=== PATIENT | female | born 1965 | race Caucasian/White ===

== ENCOUNTER 2016-11-26 11:14 | Emergency (ER) | payer MEDICAID ==
[2016-11-26 11:25] VITALS: BP 142/78
--- NOTE | 2016-11-26 12:58 | EDM.PDOC ---
[id number]: CHEST FLUTTERS Time Seen by Provider: 11/26/16 11:30 Source: Reports: Patient History Limitations: Reports: No limitations - History of Present Illness INITIAL COMMENTS - FREE TEXT/NARRATIVE: 51-year-old female who is had intermittent chest palpitations over the past several weeks. She just finished a two-day Holter monitor, was downstairs for a weight loss program and felt a few flutters so came to be checked. No chest pain or shortness of breath. Severity: mild - Related Data Allergies/ADRs: Allergies Allergy/AdvReac Type Severity Reaction Status Date / Time lamotrigine [From Lamictal] Allergy Facial Verified 10/19/15 00:51 Swelling Home Meds: Home Meds Phenytoin Sodium 400 mg PO BEDTIME 07/02/15 [History] Pantoprazole [ProTONIX] 40 mg PO DAILY 11/26/16 [History] Past Medical History Respiratory History: Reports: Asthma Gastrointestinal History: Reports: [employer] History: Reports: Dysfunctional uterine bleeding Musculoskeletal History: Reports: Fracture Neurological History: Reports: Seizure Psychiatric History: Reports: Anxiety, Depression Endocrine/Metabolic History: Reports: Obesity/BMI 30+, Other (see below) Other Endocrine/Metabolic History: masses on thyroid, biopsies inconclusive - Past Surgical History HEENT Surgical History: Reports: Tonsillectomy Female Surgical History: Reports: section Musculoskeletal Surgical History: Reports: ORIF, Other (see below) Other Musculoskeletal Surgeries/Procedures:: rt ankle, rt wrist Social & Family History - Tobacco Use Smoking Status *Q: Never Smoker - Caffeine Use Caffeine Use: Reports: Coffee - Recreational Drug Use Recreational Drug Use: No ED ROS GENERAL - Review of Systems Review Of Systems: See Below Constitutional: Denies: fever, chills Respiratory: Denies: Shortness of Breath Cardiovascular: Reports: Palpitations. Denies: Chest pain GI/Abdominal: Denies: Abdominal pain Neurological: Reports: No Symptoms Psychiatric: Reports: No symptoms ED EXAM, GENERAL - Physical Exam Exam: See Below Exam Limited By: No limitations General Appearance: alert, no apparent distress Respiratory/Chest: no respiratory distress, lungs clear Cardiovascular: regular rate, rhythm. No: extra beats GI/Abdominal: soft Neurological: alert, oriented Psychiatric: normal affect, normal mood Skin Exam: Warm, Dry Course - Vital Signs Last Recorded V/S: Last Vital Signs Temp 97.7 F 11/26/16 11:24 Pulse 67 11/26/16 11:24 Resp 16 11/26/16 11:24 BP 142/78 H 11/26/16 11:24 Pulse Ox 97 11/26/16 11:24 - Re-Assessments/Exams Free Text/Narrative Re-Assessment/Exam: 11/26/16 12:56 Patient was placed on a monitor and showed no arrhythmia or ectopic beats. She was observed for over an hour and had 2 short episodes of palpitations which did not correlate with any abnormality on the monitor. She was reassured that this is likely a noncardiac source, no further workup necessary at this time. I did recommend a stress test prior to starting an exercise program. Departure - Departure Time of Disposition: 13:09 Disposition: Home, Self-Care 01 Condition: good Clinical Impression: Palpitations Instructions: Palpitations, [id number] Referrals: PCP,None [Primary Care Provider] - Forms: ED Department Discharge Care Plan Goals: Increase activity as tolerated, return anytime if worsening or concerns. Consider a stress test for reassurance prior to starting an exercise program.
== END 2016-11-26 13:09 | disposition home or self-care (01) ==
LOC: JP.ED 11:14
DX: R00.2 Palpitations (principal); E66.9 Obesity, unspecified; Z68.43 Body mass index [BMI] 50.0-59.9, adult; Z88.8 Allergy status to other drugs, medicaments and biological substances; Z79.899 Other long term (current) drug therapy; Z98.890 Other specified postprocedural states
CPT/HCPCS: 93005; 99285

== ENCOUNTER 2021-01-03 15:43 | Emergency (ER) | payer MEDICAID ==
--- NOTE | 2021-01-03 16:48 | EDM.PDOC ---
ED HPI GENERAL MEDICAL PROBLEM - General Chief Complaint: Chest Pain Stated Complaint: CHEST PAIN Time Seen by Provider: 01/03/21 16:46 Source of Information: Reports: Patient History Limitations: Reports: No Limitations - History of Present Illness INITIAL COMMENTS - FREE TEXT/NARRATIVE: pt felt a little lite headed and she developed left sided chest pain and pain that came around from the left side posteriorly. She feels like the pain lasted for about 2 minutes. She is not uncomfortable now. She works at [employer] and has been stressed out at work. She has no cardiac history. Onset: Today, Sudden Duration: Hour(s): Location: Reports: Chest, Generalized Associated Symptoms: Reports: Chest Pain, Weakness, Other (pt felt off) - Related Data Allergies Allergy/AdvReac Type Severity Reaction Status Date / Time lamotrigine [From Lamictal] Allergy Facial Verified 01/03/21 15:49 Swelling Home Meds: Home Meds Phenytoin Sodium 400 mg PO BEDTIME 07/02/15 [History] Past Medical History Respiratory History: Reports: Asthma Gastrointestinal History: Reports: [employer]CIAL History: Reports: Dysfunctional Uterine Bleeding, Musculoskeletal History: Reports: Fracture Neurological History: Reports: Seizure Psychiatric History: Reports: Anxiety, Depression, OCD Endocrine/Metabolic History: Reports: Obesity/BMI 30+, Other (See Below) Other Endocrine/Metabolic History: masses on thyroid, biopsies inconclusive Dermatologic History: Reports: Other (See Below) Other Dermatologic History: rash - Infectious Disease History Infectious Disease History: Reports: Chicken Pox, Mumps - Past Surgical History Head Surgeries/Procedures: Reports: None HEENT Surgical History: Reports: Tonsillectomy Respiratory Surgical History: Reports: None GI Surgical History: Reports: None Female Surgical History: Reports: Section Endocrine Surgical History: Reports: None Neurological Surgical History: Reports: None Musculoskeletal Surgical History: Reports: ORIF, Other (See Below) Other Musculoskeletal Surgeries/Procedures:: rt ankle, rt wrist Social & Family History - Tobacco Use Tobacco Use Status *Q: Never Tobacco User Second Hand Smoke Exposure: No - Caffeine Use Caffeine Use: Reports: Coffee - Recreational Drug Use Recreational Drug Use: No ED ROS GENERAL - Review of Systems Review Of Systems: See Below Constitutional: Reports: No Symptoms HEENT: Reports: No Symptoms Respiratory: Reports: Shortness of Breath, Other (pain in the left post ches with deep breathing) Cardiovascular: Reports: Chest Pain, Other (pt had about 2 minutes of pain in the left upper chest. She has not had recurrent pain) Endocrine: Reports: No Symptoms GI/Abdominal: Reports: No Symptoms, Other (pt did not have nausea. ) : Reports: No Symptoms Musculoskeletal: Reports: Other (pain in left post chest flelt like muscles were tight. ) ED EXAM, GENERAL - Physical Exam Exam: See Below Free Text/Narrative:: pt arrived with a history of some left upper chest pain that lasted about 2 minutes . This was quite severe. Exam Limited By: No Limitations General Appearance: Alert, Anxious, Mild Distress, Other (pt states most of the pain is now gone. ) Ears: Normal TMs Nose: Normal Inspection Throat/Mouth: Normal Inspection Head: Atraumatic Neck: Normal Inspection Respiratory/Chest: No Respiratory Distress, Other ( chest is clear on auscultation) Cardiovascular: Regular Rate, Rhythm GI/Abdominal: Soft, Non-Tender (Female) Exam: Deferred Rectal (Female) Exam: Deferred Back Exam: Normal Inspection, Other (pt is mildly tender on left thoracic area. ) Extremities: Normal Inspection Course - Vital Signs Last Recorded V/S: Last Vital Signs Temp 36.3 C 01/03/21 16:05 Pulse 65 01/03/21 17:30 Resp 14 01/03/21 17:30 BP 136/80 01/03/21 17:30 Pulse Ox 97 01/03/21 17:30 - Orders/Labs/Meds Orders: Active Orders 24 hr Category Date Time Status EKG Documentation Completion [RC] ASDIRECTED Care 01/03/21 16:49 Active EKG 12 Lead [EK] Routine Ther 01/03/21 16:49 Ordered Labs: Laboratory Tests 01/03/21 01/03/21 01/03/21 Range/Units 16:48 16:48 16:48 WBC 7.4 (4.5-11.0) K/uL RBC 4.97 (3.30-5.50) M/uL Hgb 15.0 D (12.0-15.0) g/dL Hct 45.5 (36.0-48.0) % MCV 92 (80-98) fL MCH 30 (27-31) pg MCHC 33 (32-36) % Plt Count 275 (150-400) K/uL Neut % (Auto) 59.0 (36-66) % Lymph % (Auto) 28.0 (24-44) % Gulf % (Auto) 7.0 H (2-6) % Eos % (Auto) 5.0 H (2-4) % Baso % (Auto) 1.0 (0-1) % Sodium 145 (140-148) mmol/L Potassium 3.7 (3.6-5.2) mmol/L Chloride 105 (100-108) mmol/L Carbon Dioxide 28 (21-32) mmol/L Anion Gap 12.4 (5.0-14.0) mmol/L BUN 14 (7-18) mg/dL Creatinine 0.6 (0.6-1.0) mg/dL Est Cr Clr Drug Dosing 89.70 mL/min Estimated GFR (MDRD) > 60 (>60) Glucose 111 H (74-106) mg/dL Calcium 9.2 (8.5-10.1) mg/dL Total Bilirubin 0.3 (0.2-1.0) mg/dL AST 22 (15-37) U/L ALT 39 (12-78) U/L Alkaline Phosphatase 153 H (46-116) U/L Troponin I < 0.017 (0.000-0.056) ng/mL Total Protein 7.3 (6.4-8.2) g/dL Albumin 4.1 (3.4-5.0) g/dL Globulin 3.2 (2.3-3.5) g/dL Albumin/Globulin Ratio 1.3 (1.2-2.2) - Re-Assessments/Exams Free Text/Narrative Re-Assessment/Exam: 01/03/21 18:12 ekg did not show acute changes, chest xray was clear, trop was neg. pt has been very stressed with her work and may contribute to the incident today. Departure - Departure Time of Disposition: 18:06 Disposition: Home, Self-Care 01 Condition: Fair Clinical Impression: Chest wall discomfort, Anxiety Referrals: PCP,None [Primary Care Provider] - Forms: ED Department Discharge Care Plan Goals: low activity, relaxed evening tylenol and motrin for chest wall discomfort. rtc if marked symptoms. . If pt has recurrent chest pain should see own physian. Sepsis Event Note (ED) - Evaluation Sepsis Screening Result: No Definite Risk - Focused Exam Vital Signs: Vital Signs Temp Pulse Resp BP Pulse Ox 01/03/21 17:30 65 14 136/80 97 01/03/21 16:23 62 12 116/59 L 97 01/03/21 16:05 36.3 C 62 14 143/83 H 99 01/03/21 16:04 36.3 C 62 14 143/83 H 99 - My Orders Last 24 Hours: My Active Orders 01/03/21 16:49 EKG Documentation Completion [RC] ASDIRECTED EKG 12 Lead [EK] Routine - Assessment/Plan Last 24 Hours: My Active Orders 01/03/21 16:49 EKG Documentation Completion [RC] ASDIRECTED EKG 12 Lead [EK] Routine
[2021-01-03 17:31] VITALS: BP 136/80; PULSE 65
--- NOTE | 2021-01-03 17:53 | CRLCR ---
CHEST 2 VIEWS INDICATION: Chest pain. IMPRESSION: Normal heart size and vascular pattern. Lungs are clear. No pneumothorax or pleural effusion. Dictated by Kashmir Macdonald MD @ 01/03/2021 5:50:[address] Kashmir Macdonald @ Jan 03 2021 5:50PM
== END 2021-01-03 18:18 | disposition home or self-care (01) ==
LOC: JP.ED 15:43
DX: F41.9 Anxiety disorder, unspecified (principal); J45.909 Unspecified asthma, uncomplicated; R56.9 Unspecified convulsions; E66.9 Obesity, unspecified; Z68.42 Body mass index [BMI] 45.0-49.9, adult; Z88.8 Allergy status to other drugs, medicaments and biological substances; Z79.899 Other long term (current) drug therapy
CPT/HCPCS: 36415; 71046; 80053; 84484; 85025; 93005; 99284; 99285-25

== ENCOUNTER 2021-10-08 10:34 | Emergency (ER) | payer MEDICAID ==
[2021-10-08 12:02] LABS: CORONAVIRUS COVID-19 NAA POSITIVE (NEGATIVE)
[2021-10-08 12:54] VITALS: BP 114/76; PULSE 71
== END 2021-10-08 13:39 | disposition home or self-care (01) ==
LOC: JP.ED 10:34
DX: U07.1 COVID-19 (principal); J45.909 Unspecified asthma, uncomplicated; E66.9 Obesity, unspecified; Z68.42 Body mass index [BMI] 45.0-49.9, adult; Z88.8 Allergy status to other drugs, medicaments and biological substances
CPT/HCPCS: 0241U; 36415; 80048; 84484; 85025; 93005; 99283; 93010; 99282

== ENCOUNTER 2022-09-30 07:03 | Emergency (ER) | payer MEDICAID ==
[2022-09-30 07:18] VITALS: BP 151/76; PULSE 74
== END 2022-09-30 08:02 | disposition home or self-care (01) ==
LOC: JP.ED 07:03
DX: F41.1 Generalized anxiety disorder (principal); G47.33 Obstructive sleep apnea (adult) (pediatric); E66.01 Morbid (severe) obesity due to excess calories; J45.909 Unspecified asthma, uncomplicated; Z68.42 Body mass index [BMI] 45.0-49.9, adult; Z88.8 Allergy status to other drugs, medicaments and biological substances; Z91.040 Latex allergy status
CPT/HCPCS: 36415; 84443; 93005; 99285

== ENCOUNTER 2023-04-08 10:36 | Emergency (ER) | payer MEDICAID ==
[2023-04-08 11:08] VITALS: BP 157/92; PULSE 76
[2023-04-08 11:31] LABS: BASOPHILS ABSOLUTE AUTO 0.06 K/uL (0.00-0.10); BASOPHILS PERCENT AUTO 0.9 % (0.1-1.3); EOSINOPHILS ABSOLUTE AUTO 0.29 K/uL (0.00-0.40); EOSINOPHILS PERCENT AUTO 4.3 % (0.0-5.4); HEMATOCRIT 43.9 % (34.3-46.0); HEMOGLOBIN 14.6 g/dL (11.2-15.5); IMMATURE GRAN ABSOLUTE AUTO 0.06 K/uL (0.00-0.23); IMMATURE GRAN PERCENT AUTO 0.9 % (0.0-0.7); LYMPHOCYTES ABSOLUTE AUTO 1.69 K/uL (0.8-3.3); LYMPHOCYTES PERCENT AUTO 25.1 % (11.4-47.7); MEAN CORPUSCULAR HEMOGLOBIN 30.4 pg (31.6-35.5); MEAN CORPUSCULAR HGB CONC 33.3 g/dL (31.6-35.5); MEAN CORPUSCULAR VOLUME 91.3 fL (81.4-99.0); MONOCYTES ABSOLUTE AUTO 0.57 K/uL (0.20-0.90); MONOCYTES PERCENT AUTO 8.5 % (3.3-12.6); NEUTROPHILS ABSOLUTE AUTO 4.06 K/uL (1.0-7.6); NEUTROPHILS PERCENT AUTO 60.3 % (40.0-78.1); PLATELET COUNT,PLT 229 K/uL (130-375); RED BLOOD CELL COUNT 4.81 M/uL (3.77-5.24); WHITE BLOOD CELL COUNT,WBC 6.7 K/uL (3.2-11.0)
[2023-04-08 11:55] LABS: CREATININE 0.6 mg/dL (0.6-1.0); EST CRCL DRUG DOSING (CG) 83.79 mL/min; POTASSIUM,K 3.8 mmol/L (3.6-5.2); TROPONIN I HIGH SENSITIVITY 5.2 pg/mL (<=60.3)
== END 2023-04-08 12:31 | disposition home or self-care (01) ==
LOC: JP.ED 10:36
DX: F41.9 Anxiety disorder, unspecified (principal); J45.909 Unspecified asthma, uncomplicated; E66.9 Obesity, unspecified; Z79.899 Other long term (current) drug therapy; Z91.040 Latex allergy status; Z88.8 Allergy status to other drugs, medicaments and biological substances
CPT/HCPCS: 36415; 71046; 71046-26; 80048; 84484; 85025; 93005; 99285

== ENCOUNTER 2024-02-23 15:17 | Emergency (ER) | payer MEDICAID, OTHER ==
[2024-02-23] MEDS ORDERED: Naloxone 0.4 MG/ML SDV IVPUSH PRN (16:27)
[2024-02-23] MEDS ORDERED: HYDROmorphone 0.5 MG/0.5 ML Syringe IVPUSH PRN (16:27)
[2024-02-23 16:38] LABS: BASOPHILS ABSOLUTE AUTO 0.08 K/uL (0.00-0.10); BASOPHILS PERCENT AUTO 0.8 % (0.1-1.3); EOSINOPHILS ABSOLUTE AUTO 0.31 K/uL (0.00-0.40); EOSINOPHILS PERCENT AUTO 3.3 % (0.0-5.4); HEMATOCRIT 43.4 % (34.3-46.0); IMMATURE GRAN ABSOLUTE AUTO 0.06 K/uL (0.00-0.23); IMMATURE GRAN PERCENT AUTO 0.6 % (0.0-0.7); LYMPHOCYTES ABSOLUTE AUTO 2.41 K/uL (0.8-3.3); LYMPHOCYTES PERCENT AUTO 25.5 % (11.4-47.7); MEAN CORPUSCULAR HEMOGLOBIN 30.7 pg (31.6-35.5); MEAN CORPUSCULAR HGB CONC 34.6 g/dL (31.6-35.5); MEAN CORPUSCULAR VOLUME 88.9 fL (81.4-99.0); MONOCYTES ABSOLUTE AUTO 0.75 K/uL (0.20-0.90); MONOCYTES PERCENT AUTO 7.9 % (3.3-12.6); NEUTROPHILS ABSOLUTE AUTO 5.84 K/uL (1.0-7.6); NEUTROPHILS PERCENT AUTO 61.9 % (40.0-78.1); PLATELET COUNT,PLT 247 K/uL (130-375); RED BLOOD CELL COUNT 4.88 M/uL (3.77-5.24); WHITE BLOOD CELL COUNT,WBC 9.5 K/uL (3.2-11.0)
[2024-02-23 16:59] LABS: A/G RATIO 1.1 (1.2-2.2); ALANINE AMINOTRANSFERASE,ALT 44 U/L (12-78); ALBUMIN 4.1 g/dL (3.4-5.0); ALKALINE PHOSPHATASE 145 U/L (46-116); ANION GAP 9.6 mmol/L (5.0-14.0); ASPARTATE AMNIOTRANSFERASE,AST 25 U/L (15-37); BILIRUBIN TOTAL 0.2 mg/dL (0.2-1.0); BLOOD UREA NITROGEN,BUN 16 mg/dL (7-18); CALCIUM 9.6 mg/dL (8.5-10.1); CARBON DIOXIDE,CO2 27 mmol/L (21-32); CHLORIDE,CL 104 mmol/L (100-108); CREATININE 0.9 mg/dL (0.6-1.0); EST CRCL DRUG DOSING (CG) 57.74 mL/min; ESTIMATED GFR 75 mL/min (>60); GLUCOSE RANDOM 129 mg/dL (74-106); POTASSIUM,K 4.2 mmol/L (3.6-5.2); PROTEIN TOTAL,TP 7.7 g/dL (6.4-8.2); SODIUM,NA 141 mmol/L (140-148)
[2024-02-23] MEDS: Ketorolac 30 MG/ML SDV IVPUSH ONE (17:08)
[2024-02-23] MEDS: Sodium Chloride 0.9% 1,000 ML IV SCH (17:11)
[2024-02-23] MEDS: Prochlorperazine 10 MG/2 ML SDV IVPUSH ONE (17:12)
[2024-02-23] MEDS: Ketorolac 30 MG/ML SDV IM ONE (17:12)
[2024-02-23 18:15] LABS: APPEARANCE,URINE SLIGHTLY CLOUDY (CLEAR); BILIRUBIN,URINE NEGATIVE (NEGATIVE); COLOR,URINE YELLOW (YELLOW); GLUCOSE,URINE NEGATIVE (NEGATIVE); KETONES,URINE NEGATIVE (NEGATIVE); LEUKOCYTE ESTERASE,URINE SMALL (NEGATIVE); NITRITE,URINE NEGATIVE (NEGATIVE); OCCULT BLOOD,URINE LARGE (NEGATIVE); PROTEIN,URINE NEGATIVE (NEGATIVE); UROBILINOGEN,URINE 0.2 EU/dL (0.2-1.0)
[2024-02-23 18:21] LABS: RBC,URINE 50-75 (0-5)
[2024-02-23 18:23] LABS: AMORPHOUS SEDIMENT,URINE MODERATE; BACTERIA,URINE FEW; EPITHELIAL CELLS,URINE FEW; MUCUS,URINE FEW
[2024-02-23] MEDS: Tamsulosin 0.4 MG Cap.ER PO ONE (18:44)
[2024-02-23 19:00] VITALS: BP 119/74; PULSE 78
== END 2024-02-23 19:00 | disposition home or self-care (01) ==
LOC: JP.ED 15:17
DX: N13.2 Hydronephrosis with renal and ureteral calculous obstruction (principal); E78.00 Pure hypercholesterolemia, unspecified; Z91.040 Latex allergy status; Z88.8 Allergy status to other drugs, medicaments and biological substances; Z79.899 Other long term (current) drug therapy
CPT/HCPCS: 36415; 74176; 80053; 81001; 83605; 83690; 84145; 85025; 96361; 96374; 96375; 99284; A9270; J0780; J1885; J7030